=== PATIENT | female | born 1945 | race Caucasian/White ===

== ENCOUNTER 2019-10-03 03:04 | Emergency (ER) | payer MEDICARE, SELFPAY ==
--- NOTE | ~2019-10-03 | CT_ITS ---
EXAMINATION: CT abdomen pelvis w con EXAM DATE: 10/03/2019 05:27 INDICATION: Right lower quadrant pain. TECHNIQUE: Spiral CT of the abdomen and pelvis was performed following intravenous injection of 100 m L Omnipaque 350. Axial, coronal and sagittal images were reviewed. The dose-length product (DLP) fo r this examination was 575.82 mGy-cm. The exposure was tailored according to patient size (auto mA e xposure control), and iterative reconstruction (ASIR) was used as additional dose reduction technique . Comparison is made to prior examination from 11/04/2006. FINDINGS: Splenic granulomas. There is hepatic steatosis without suspicious focal lesion identified. Adrenal glands, pancreas are unremarkable. Gallbladder is unremarkable. No biliary obstruction. Th ere is a 2 mm stone in the right ureterovesicular junction with mild hydronephrosis and moderate burton nephric fat stranding. Delayed right-sided nephrogram compared to nonobstructed contralateral side. P robable fibroids. The bladder is collapsed at time of imaging limiting evaluation. There is no retr operitoneal or pelvic lymphadenopathy. There is mild to moderate scattered arteriosclerotic disease . The appendix is not positively visualized. There is no pericecal inflammatory change to suggest appe ndicitis. There is small sliding gastroesophageal hiatal hernia. There is expected amount of colon ic stool. No free intraperitoneal gas. There is cardiomegaly and pulmonary vascular congestion. N o pleural or pericardial effusions. There are bibasilar linear opacities, subsegmental atelectasis. There are no osteoblastic or osteolytic lesions identified. IMPRESSION: 1. Right UVJ 2 mm stone, mild hydronephrosis. 2. Probable fibroid uterus. 3. Small hiatal hernia. 4. Hepatic steatosis. 5. Cardiomegaly, basilar congestion. 6. Subsegmental atelectasis. Reviewed, dictated and finalized at location D. CTIONAL DRILL OPERATOR
[2019-10-03 03:16] VITALS: BP 210/94; PULSE 97; RESP 22; TEMP 36.4; O2SAT 100
[2019-10-03 03:39] LABS: Basophils Absolute Auto 0.1 K/mm3 (0.0-0.1); Basophils Percent Auto 0.5 % (0.2-1.2); Eosinophils Percent Auto 0.1 % (0-4.4); Hematocrit 44.4 % (37.0-47.0); Hemoglobin 14.4 g/dL (12.0-15.0); Immature Granulocyte Absolute 0.05 K/mm3 (0.00-0.031); Immature Granulocyte Percent A 0.4 % (0-0.5); Lymphocytes Absolute Auto 0.73 K/mm3 (0.9-3.2); Lymphocytes Percent Auto 5.8 % (18.3-44.2); Mean Corpuscular HGB Conc 32.4 g/dl (32-36); Mean Corpuscular Hemoglobin 28.8 pg (26-34); Mean Corpuscular Volume 88.8 fl (80-100); Mean Platelet Volume 10.7 fl (7.4-10.4); Monocytes Absolute Auto 0.5 K/mm3 (0.1-0.6); Monocytes Percent Auto 3.7 % (2.6-8.5); Neutrophils Absolute Auto 11.3 K/mm3 (1.3-6.7); Neutrophils Percent Auto 89.5 % (45.5-73.1); Platelet Count Result 240 k/mm3 (150-375); Red Cell Distribution Width 13.2 % (11.5-14.5); White Blood Count 12.6 K/mm3 (4.5-10.0)
[2019-10-03 04:03] LABS: Alanine Aminotransferase 27 U/L (4-35); Albumin Level 4.8 g/dL (3.5-5.1); Alkaline Phosphatase 93 U/L (38-126); Aspartate Amino Transferase 32 U/L (14-36); Bilirubin,Total 0.8 mg/dL (0.2-1.3); Blood Urea Nitrogen 15 mg/dL (7-17); Calcium 9.4 mg/dL (8.4-10.2); Carbon Dioxide 25 mmol/L (22-30); Chloride 98 mmol/L (98-107); Estimated CRCL calculation 44 ml/min; Estimated Glomerular Filt Rate > 60; Glucose 171 mg/dL (65-105); Lipase 55 U/L (23-300); Potassium 3.6 mmol/L (3.4-5.0); Sodium 138 mmol/L (137-145)
[2019-10-03] MEDS: ONDANSETRON INJ 4 MG/2 ML VIAL IV PUSH (04:21)
[2019-10-03] MEDS: MORPHINE SULFATE 4 MG/ML INJ IV PUSH (04:21)
[2019-10-03 04:23] VITALS: BP 178/71; PULSE 97; RESP 16; O2SAT 100
[2019-10-03 04:42] VITALS: BP 156/74; PULSE 86; RESP 18; O2SAT 100
[2019-10-03 04:53] LABS: Add Urine Microscopic? YES; Appearance Urine Cloudy (Clear); Bacteria Urine Trace /hpf; Bilirubin Urine Negative (Negative); Blood Urine Negative (Negative); Color Urine Yellow (Yellow); Glucose Urine UA 1+ mg/dL (Negative); Ketones Urine Trace mg/dL (Negative); Leukocyte Esterase Ur Negative LEU/UL (Negative); Mucus Urine Few /lpf; Nitrate Urine Negative (Negative); Protein Urine 2+ mg/dL (Negative); Squamous Epithelial Cell Urine Occasional /hpf (Few); Urobilinogen Urine Negative mg/dL (<2.0)
--- NOTE | 2019-10-03 05:49 | ED.ABDPAIN ---
HPI - Abdominal Pain General Chief Complaint: Abdominal Pain Stated Complaint: abd pain Time Seen by Provider: 10/03/19 03:49 History of Present Illness HPI narrative: Patient is a 74-year-old female who presents ER with sudden onset right-sided abdominal pain. Began earlier tonight. Associated with multiple bouts of emesis. No diarrhea. No known sick contacts. She is without urinary frequency/urgency/hematuria. Symptoms move into her right lower quadrant. Cannot find any aggravating or alleviating factors. Has not had similar sx previously. Related Data Home Medications Medication Instructions Recorded Confirmed anastrozole 1 mg tablet 1 mg PO DAILY 08/17/19 lisinopril 40 mg tablet 40 mg PO DAILY 08/17/19 metformin 500 mg tablet,extended 500 mg PO DAILY 08/17/19 release 24 hr metoprolol tartrate 50 mg tablet 100 mg PO Q12H tablet 08/17/19 Allergies Allergy/AdvReac Type Severity Reaction Status Date / Time codeine Allergy Unknown Nausea Verified 08/17/19 12:04 Review of Systems Review of Systems: All systems reviewed & are unremarkable except as noted in HPI and below Constitutional: Constitutional: Denies chills, Denies fever(s) and Denies weakness Cardiovascular: Cardiovascular: Denies chest pain Respiratory: Respiratory: Denies cough and Denies dyspnea Gastrointestinal: Gastrointestinal: Reports abdominal pain, Denies diarrhea, Reports nausea and Reports vomiting Genitourinary: Genitourinary: Denies hematuria, Denies nocturia, Denies dysuria and Denies flank pain PMFSH Past Medical History Medical History (Updated 10/03/19 @ 05:58 by Master Hidalgo MD) Essential (primary) hypertension Generalized anxiety disorder Lumbar radiculopathy Malignant essential hypertension Malignant neoplasm of unspecified site of left female breast Surgical History Surgical History (Updated 10/03/19 @ 05:53 by Master Hidalgo MD) History of appendectomy Social History Social History Smoking status: Never smoker Alcohol intake: current Gender identity (if verbalized by the patient): Female Exam Narrative: Exam Narrative: GENERAL: Uncomfortable-appearing, well-nourished, and in mild distress. HEAD: Normocephalic, atraumatic. ENT: Mucous membranes moist. CHEST: Clear to auscultation. No respiratory distress. HEART: Regular rate and rhythm. Normal peripheral pulses. ABDOMEN: Soft, mild TTP in the RLQ, nondistended. EXTREMITIES: Normal range of motion. No edema. SKIN: Warm, dry, no rash. NEURO: Alert and oriented x3. Course Vital Signs Vital signs: Vital Signs Temperature 97.6 F 10/03/19 03:16 Pulse Rate 97 10/03/19 03:16 Respiratory Rate 22 H 10/03/19 03:16 Blood Pressure 210/94 H 10/03/19 03:16 Pulse Oximetry 100 10/03/19 03:16 Temperature 97.6 F 10/03/19 03:16 Pulse Rate 86 10/03/19 04:42 Respiratory Rate 18 10/03/19 04:42 Blood Pressure 156/74 H 10/03/19 04:42 Pulse Oximetry 100 10/03/19 04:42 MDM - Abdominal Pain Lab Data Result diagrams: 10/03/19 03:31 10/03/19 03:31 Labs: Lab Results 10/03/19 10/03/19 10/03/19 Range/Units 03:31 03:31 04:18 WBC 12.6 H (4.5-10.0) K/mm3 RBC 5.00 (4.2-5.4) M/mm3 Hgb 14.4 (12.0-15.0) g/dL Hct 44.4 (37.0-47.0) % MCV 88.8 (80-100) fl MCH 28.8 (26-34) pg MCHC 32.4 (32-36) g/dl RDW 13.2 (11.5-14.5) % Plt Count 240 (150-375) k/mm3 MPV 10.7 H (7.4-10.4) fl Immature Gran % (Auto) 0.4 (0-0.5) % Neut % (Auto) 89.5 H (45.5-73.1) % Lymph % (Auto) 5.8 L (18.3-44.2) % [place] % (Auto) 3.7 (2.6-8.5) % Eos % (Auto) 0.1 (0-4.4) % Baso % (Auto) 0.5 (0.2-1.2) % Lymph # (Auto) 0.73 L (0.9-3.2) K/mm3 [place] # (Auto) 0.5 (0.1-0.6) K/mm3 Eos # (Auto) 0.0 (0-0.3) K/mm3 Baso # (Auto) 0.1 (0.0-0.1) K/mm3 Abs Immat Gran (auto) 0.05 H (0.00-
[2019-10-03] MEDS: KETOROLAC 30 MG/ML VIAL (*BKC) IV PUSH (05:54)
[2019-10-03 05:55] VITALS: BP 141/87; PULSE 88; RESP 16; TEMP 36.4; O2SAT 100
[2019-10-03 06:39] VITALS: BP 135/81; PULSE 76; RESP 16; TEMP 36.8; O2SAT 100
== END 2019-10-03 06:40 | disposition home or self-care (01) ==
PROVIDERS: Emergency Provider Emergency Medicine; PCP Family Medicine
DX: N13.2 Hydronephrosis with renal and ureteral calculous obstruction (principal); I10 Essential (primary) hypertension; Z85.3 Personal history of malignant neoplasm of breast
CPT/HCPCS: 36415; 74177; 80053; 81001; 83690; 85025; 96374; 96375; 99284; J1885; J2270; J2405; Q9967

== ENCOUNTER 2019-10-12 12:53 | Outpatient (CLI) | payer MEDICARE, SELFPAY ==
--- NOTE | ~2019-10-12 | MM_ITS ---
Patient consultation: I reviewed the 09/27/2019 left diagnostic mammogram images with the patient and discussed the prese nce of fat necrosis centrally within the surgical scar of the left breast, with some associated perip heral calcifications associated with the fat necrosis. I indicated that these were all benign postope rative findings and that biopsy was not indicated. IMPRESSIONS: BI-RADS Category 2: Benign Recommend aeration: Routine mammographic screening and any appropriate additional imaging as consider ed clinically appropriate for this patient with history of prior left breast cancer Reviewed, dictated and finalized at location B. TTER IMPRESSIONS: BI-RADS Category 2: Benign Recommend aeration: Routine mammographic screening and any appropriate addition al imaging as considered clinically appropriate for this patient with history o f prior left breast cancer
== END 2019-10-12 12:54 | disposition home or self-care (01) ==
PROVIDERS: PCP Family Medicine
DX: R92.8 Other abnormal and inconclusive findings on diagnostic imaging of breast (principal)
CPT/HCPCS: 99199

== ENCOUNTER → 2020-10-14 10:26 | Outpatient (CLI) | payer MEDICARE, SELFPAY ==
--- NOTE | ~2020-10-14 | DEXA_ITS ---
Bone Density Report Name: Annette Manriquez Age: 75 Sex: Female Ethnicity: White Date of : 1945 Indication: postmenopausal; screening for osteoporosis; cancer; Referring Provider: THOMAS, TARA Melendez Study: Bone densitometry was performed. Exam Date: October 14, 2020 Accession number: [id number] Bone Density: Region BMD T-score Z-score Classification AP Spine (L1-L4) 1.233 1.7 4.0 Normal Femoral Neck (Left) 0.778 -0.6 1.3 Normal Total Hip (Left) 0.993 0.4 2.1 Normal Femoral Neck (Right) 0.794 -0.5 1.5 Normal Total Hip (Right) 0.938 0.0 1.7 Normal Total Hip Mean 0.966 0.2 1.9 Normal World Health Organization criteria for BMD impression classify patients as: Normal (T-score at or above -1.0), Osteopenia (T-score between -1.0 and -2.5), or Osteoporosis (T-score at or below -2.5). 10-year Fracture Risk: FRAX not reported because: All T-scores for Spine Total, Hip Total, Femoral Neck at or above -1.0 Previous Exams: Region Exam Age BMD T-score BMD Change BMD Change Date g/cm2 vs Baseline vs Previous AP Spine(L1-L4) 10/14/2020 75 1.233 1.7 -0.136 -0.027* 08/16/2018 73 1.260 1.9 -0.109 0.023 07/25/2015 70 1.237 1.7 -0.132 0.005 02/07/2010 64 1.232 1.7 -0.137 0.002 09/24/2006 61 1.230 1.7 -0.140 -0.140 08/25/2002 57 1.369 2.9 Total Hip(Left) 10/14/2020 75 0.993 0.4 -0.012 0.009 08/16/2018 73 0.985 0.3 -0.020 -0.022 07/25/2015 70 1.007 0.5 0.002 0.016 02/07/2010 64 0.990 0.4 -0.015 -0.002 09/24/2006 61 0.992 0.4 -0.013 -0.013 08/25/2002 57 1.005 0.5 Total Hip(Right) 10/14/2020 75 0.938 0.0 -0.060 0.000 08/16/2018 73 0.938 0.0 -0.060 -0.020 07/25/2015 70 0.958 0.1 -0.040 -0.040* 02/07/2010 64 0.997 0.5 -0.001 0.070* 09/24/2006 61 0.928 -0.1 -0.070 -0.070 08/25/2002 57 0.998 0.5 *Denotes significance at 95% confidence level, LSC for AP Spine = 0.022 g/cm2, LSC for Total Hip = 0.027 g/cm2 Clinical Information Provided by Patient: Has used the following medications: Vitamin D Has the following medical conditions: Cancer Patient maximum height was 63.2 Menopause Age: 54 Drinks caffeinated beverages Onset of menses at age 15 Number
== END ==
PROVIDERS: PCP Family Medicine; Visit Provider Internal Medicine Medical Oncology
DX: Z78.0 Asymptomatic menopausal state (principal)
CPT/HCPCS: 77080

== ENCOUNTER → 2020-10-30 09:45 | Outpatient (CLI) | payer MEDICARE, SELFPAY ==
--- NOTE | ~2020-10-30 | MM_ITS ---
EXAMINATION: MM diagnostic rich BI w keo HISTORY: History of left breast cancer TECHNIQUE: Craniocaudal, mediolateral, and mediolateral oblique 3-D tomosynthesis images of the breas ts were performed and synthetic 2-D images were generated. CAD analysis was submitted and interpreted . COMPARISON: 09/27/2019,07/26/2019, 08/02/2017, 07/27/2016 BREAST PARENCHYMAL COMPOSITION: There are scattered areas of fibroglandular density. FINDINGS: There are stable lumpectomy changes in the subareolar aspect of the left breast. There is u nchanged asymmetry in the subareolar aspect of the right breast. No suspicious mass, calcification, o r architectural distortion are identified. Surgical clips in the left axilla are consistent with lymp h node dissection. IMPRESSION: 1. No mammographic evidence of malignancy. 2. Recommend routine screening mammography in one year. BI-RADS Category 2: Benign finding(s). Reviewed, dictated and finalized at location A. ICE CENTER MANAGER
== END ==
PROVIDERS: Visit Provider Internal Medicine Medical Oncology
DX: C50.612 Malignant neoplasm of axillary tail of left female breast (principal); Z17.0 Estrogen receptor positive status [ER+]
CPT/HCPCS: 77062; 77066; G0279

== ENCOUNTER 2020-11-04 15:11 | Outpatient (CLI) | payer MEDICARE, SELFPAY | END 2020-11-04 15:12 | disposition home or self-care (01) | LOC: ANHCOVIDVC 15:12 | DX: Z23 Encounter for immunization (principal) | CPT/HCPCS: 0001A; 91300 ==

== ENCOUNTER 2020-11-25 15:12 | Outpatient (CLI) | payer MEDICARE, SELFPAY | END 2020-11-25 15:13 | disposition home or self-care (01) | LOC: ANHCOVIDVC 15:12 | DX: Z23 Encounter for immunization (principal) | CPT/HCPCS: 0002A; 91300 ==

== ENCOUNTER 2021-09-25 01:05 | Day surgery (SDC) | payer MEDICARE, SELFPAY ==
[2021-09-18 15:58] VITALS: BMI 29.7
[2021-09-25 09:30] VITALS: BP 145/79; PULSE 98; RESP 20; TEMP 36.6; O2SAT 100; BMI 29.1
[2021-09-25 09:47] LABS: Glucose Point of Care 133 mg/dl (65-105)
[2021-09-25] MEDS: LACTATED RINGERS 1,000 ML 150 ML IV CONT (09:47)
--- NOTE | 2021-09-25 09:57 | WPDGICN ---
Assessment and Plan Assessment and plan (1) Personal history of colonic polyps: Code(s): Z86.010 - Personal history of colonic polyps Status: Acute Assessment and Plan: Patient presents for screening colonoscopy. She gives a distant history of colon polyps. plan is for surveillance colonoscopy at this time. 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 Patient has a prior history of colon polyps. Most recent colonoscopy was more than 10 years prior to this. Patient reports her current weight appetite bowel movements are normal. She denies abdominal pain. 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 She presents today for neoplasia screening colonoscopy. Review of Systems Review of Systems: All systems reviewed & are unremarkable except as noted in HPI and below PMFSH Past Medical History Medical History (Updated 08/15/21 @ 15:04 by Chely Marks PA-C) Essential (primary) hypertension Generalized anxiety disorder Hepatitis C antibody test negative (03/01/17) Hyperuricemia Kidney stone Lumbar radiculopathy Malignant essential hypertension Malignant neoplasm of unspecified site of left female breast Obesity (BMI 30.0-34.9) Overweight (BMI 25.0-29.9) Surgical History Surgical History History of appendectomy Family History Family History Father Family history of cardiovascular disease, Onset Age: 62 Mother Family history of congestive heart failure, Onset Age: 90 Father Family history of congenital heart disease Mother Family history of congestive heart failure Social History Social History Smoking status: Never smoker Alcohol intake: current Drinks per week: 7 Alcohol use details: WINE Substance use: never Substance use type: does not use Living arrangements: with family Gender identity (if verbalized by the patient): Female Spiritual care concerns: No Meds Home Medications and Allergies Home Medications Medication Instructions Recorded Confirmed Type anastrozole 1 mg tablet 1 mg PO DAILY 08/17/19 09/18/21 History ergocalciferol (vitamin D2) 1,250 50,000 unit PO WEEKLY #13 cap 03/14/21 09/18/21 Rx mcg (50,000 unit) capsule clopidogrel 75 mg tablet 75 mg PO DAILY #90 tablet 08/18/21 09/25/21 Rx hydrochlorothiazide 12.5 mg tablet 12.5 mg PO DAILY #90 tablet 08/18/21 09/18/21 Rx metformin 500 mg tablet,extended 500 mg PO DAILY #90 tablet 08/18/21 09/18/21 Rx release 24 hr aspirin [Adult Low Dose Aspirin] 81 mg PO DAILY 09/18/21 09/18/21 History lisinopril 40 mg PO DAILY 09/18/21 09/18/21 History metoprolol tartrate 50 mg PO BID 09/18/21 09/18/21 History Allergies Allergy/AdvReac Type Severity Reaction Status Date / Time codeine AdvReac Mild Nausea Verified 09/25/21 09:26 meperidine AdvReac Mild NAUSEA Verified 09/25/21 09:26 Vital Signs Vital Signs - 24 hr 09/25/21 09:30 Temperature 97.8 F Pulse Rate 98 Respiratory Rate 20 Blood Pressure 145/79 H Pulse Oximetry 100 Exam Narrative: Physical exam reveals patient to be alert. Vital signs stable. HEENT exam is unremarkable. Patient is anicteric. Lungs are clear to auscultation and percussion. Heart is without murmur or extra sounds. Abdominal exam bowel sounds are present soft nontender with no organomegaly. Digital external rectal exam is normal.
--- NOTE | 2021-09-25 10:26 | WPDANESEPPF ---
Anes - Initial Pre Proc Eval Procedure: Operation Date: 09/25/21 10:30 Proposed Procedures p Screening Colonoscopy - Bronson Vidal MD Date/Time: 09/25/21 10:26 Surgeon: Bronson Vidal MD Pre Op Diagnosis: hx of colon polyps Patient Data Age: 76 Gender: F Height: 1.63 m Weight: 77 kg Last Vital Signs Temp 97.8 F 09/25/21 09:30 Pulse 98 09/25/21 09:30 Resp 20 09/25/21 09:30 BP 145/79 H 09/25/21 09:30 Pulse Ox 100 09/25/21 09:30 Allergies Allergy/AdvReac Type Severity Reaction Status Date / Time codeine AdvReac Mild Nausea Verified 09/25/21 09:26 meperidine AdvReac Mild NAUSEA Verified 09/25/21 09:26 Home Medications Medication Instructions Recorded Confirmed Type anastrozole 1 mg tablet 1 mg PO DAILY 08/17/19 09/18/21 History ergocalciferol (vitamin D2) 1,250 50,000 unit PO WEEKLY #13 cap 03/14/21 09/18/21 Rx mcg (50,000 unit) capsule clopidogrel 75 mg tablet 75 mg PO DAILY #90 tablet 08/18/21 09/25/21 Rx hydrochlorothiazide 12.5 mg tablet 12.5 mg PO DAILY #90 tablet 08/18/21 09/18/21 Rx metformin 500 mg tablet,extended 500 mg PO DAILY #90 tablet 08/18/21 09/18/21 Rx release 24 hr aspirin [Adult Low Dose Aspirin] 81 mg PO DAILY 09/18/21 09/18/21 History lisinopril 40 mg PO DAILY 09/18/21 09/18/21 History metoprolol tartrate 50 mg PO BID 09/18/21 09/18/21 History Laboratory Tests 09/25/21 09:43 POC Capillary Glucose 133 mg/dl H mg/dl (65-105) Patient hx anesthesia problems: none Family hx anesthesia problems: none Results Review: All pre-operative results and documents have been reviewed as part of the pre-operative evaluation. [facility] Past Medical History Medical History (Updated 08/15/21 @ 15:04 by Chely Marks PA-C) Essential (primary) hypertension Generalized anxiety disorder Hepatitis C antibody test negative (06/26/17) Hyperuricemia Kidney stone Lumbar radiculopathy Malignant essential hypertension Malignant neoplasm of unspecified site of left female breast Obesity (BMI 30.0-34.9) Overweight (BMI 25.0-29.9) Surgical History Surgical History History of appendectomy Family History Family History Father Family history of cardiovascular disease, Onset Age: 62 Mother Family history of congestive heart failure, Onset Age: 90 Father Family history of congenital heart disease Mother Family history of congestive heart failure Social History Social History Smoking status: Never smoker Alcohol intake: current Drinks per week: 7 Alcohol use details: WINE Substance use: never Substance use type: does not use Living arrangements: with family Gender identity (if verbalized by the patient): Female Spiritual care concerns: No Anes - Eval Final PreProcedure Day of Procedure 09/25/21 10:26 Patient weight: overweight Heart: regular rate and rhythm Lungs: clear to auscultation Airway: Mallampati scale class II Neurological: alert and oriented Last oral intake: >/= 8 hours ASA classification: III Emergent: no Anesthetic plan: proceed Anesthesia type and monitoring: general GIVS and standard monitoring Results Review: All pre-operative results and documents have been reviewed as part of the pre-operative evaluation. Informed Consent: The patient's anesthetic plan and its attendant risks and benefits were discussed with the patient/family/POA. Questions were solicited and answers provided to the satisfaction of the patient/family/POA.
[2021-09-25 11:08] VITALS: BP 138/75; PULSE 88; RESP 22; O2SAT 99
[2021-09-25 11:18] VITALS: BP 134/70; PULSE 84; RESP 18; O2SAT 100
[2021-09-25 11:27] VITALS: BP 143/64; PULSE 76; RESP 15; O2SAT 96
== END 2021-09-25 11:45 | disposition home or self-care (01) ==
PROVIDERS: PCP Family Medicine; Visit Provider Internal Medicine Gastroenterology
PROC: 0DJD8ZZ Inspection of Lower Intestinal Tract, Via Natural or Artificial Opening Endoscopic (ICD-10-PCS; CPT 45378; principal; 2021-09-25 10:30)
DX: Z12.11 Encounter for screening for malignant neoplasm of colon (principal); Z86.010 Personal history of colon polyps; I69.951 Hemiplegia and hemiparesis following unspecified cerebrovascular disease affecting right dominant side; I10 Essential (primary) hypertension; F41.1 Generalized anxiety disorder; Z85.72 Personal history of non-Hodgkin lymphomas; Z79.811 Long term (current) use of aromatase inhibitors; Z85.3 Personal history of malignant neoplasm of breast; Z79.02 Long term (current) use of antithrombotics/antiplatelets; Z79.82 Long term (current) use of aspirin; Z79.84 Long term (current) use of oral hypoglycemic drugs
CPT/HCPCS: G0105; 82948; J2704; J7120

== ENCOUNTER → 2021-11-07 14:09 | Outpatient (CLI) | payer MEDICARE, SELFPAY ==
--- NOTE | ~2021-11-07 | MM_ITS ---
EXAMINATION: MM diagnostic rich BI w keo HISTORY: History of left breast cancer TECHNIQUE: Craniocaudal, mediolateral, and mediolateral oblique 3-D tomosynthesis images of the breas ts were performed and synthetic 2-D images were generated. CAD analysis was submitted and interpreted . COMPARISON: 10/30/2020,09/27/2019, 08/04/2018 BREAST PARENCHYMAL COMPOSITION: There are scattered areas of fibroglandular density. FINDINGS: Stable lumpectomy changes are again noted in the subareolar aspect of the left breast. Stab le asymmetry is seen in the subareolar aspect of the right breast. There is no suspicious mass, calci fication, or architectural distortion. Changes of left axillary lymph node dissection are again noted . IMPRESSION: 1. No mammographic evidence of malignancy. 2. Recommend routine screening mammography in one year. BI-RADS Category 2: Benign finding(s). Reviewed, dictated and finalized at location A. ONATION EQUIPMENT OPERATOR
== END ==
PROVIDERS: PCP Internal Medicine Medical Oncology; Visit Provider Internal Medicine Medical Oncology
DX: C50.612 Malignant neoplasm of axillary tail of left female breast (principal); Z17.0 Estrogen receptor positive status [ER+]
CPT/HCPCS: 77062; 77066; G0279

== ENCOUNTER 2022-10-17 08:11 | Emergency (ER) | payer MEDICARE, SELFPAY ==
--- NOTE | 2022-10-17 08:16 | ED.URI ---
HPI - URI/Sore Throat General Chief Complaint: Upper Respiratory Infection Stated Complaint: COLD SYMPTOMS Time Seen by Provider: 10/17/22 08:16 Source: patient and RN notes reviewed History of Present Illness HPI Narrative: Patient is a 77-year-old female who presents to urgent care with complaints of a cold. Patient states that for approximately 1 week she has had congestion, postnasal drainage, cough and bilateral ear pain. Patient states the ear pain started after she was flying yesterday. Patient denies any fever, nausea, vomiting. Denies any ill exposures. No other acute complaints. Patient been taking DayQuil for her symptoms. No acute distress noted. Patient aware of the plan of care. Some parts of this dictation were generated by voice recognition software and may contain typographical and/or grammatical inaccuracies. Related Data Home Medications Medication Instructions Recorded Confirmed anastrozole 1 mg tablet 1 mg PO DAILY 08/17/19 10/17/22 aspirin 81 mg tablet 81 mg PO DAILY 09/18/21 10/17/22 Allergies Allergy/AdvReac Type Severity Reaction Status Date / Time codeine AdvReac Mild Nausea Verified 10/17/22 08:21 meperidine AdvReac Mild NAUSEA Verified 10/17/22 08:21 Review of Systems Review of Systems: CONSTITUTIONAL: Denies fever, chills, or sweats. EYES: Denies visual changes, redness, or discharge. ENT: Reports postnasal drainage, congestion, bilateral otalgia CARDIOVASCULAR: Denies chest pain, palpitations, or edema. RESPIRATORY: Reports of cough without dyspnea GASTROINTESTINAL: Denies abdominal pain, nausea, vomiting, or diarrhea. GENITOURINARY: Denies dysuria or hematuria. SKIN: Denies rash or itching. MUSCULOSKELETAL: Denies back pain, joint pain, or myalgia. NEUROLOGIC: Denies headache, numbness, or weakness. All other systems reviewed are negative, except as documented in HPI. [facility] Past Medical History Medical History Essential (primary) hypertension Generalized anxiety disorder Hepatitis C antibody test negative (03/01/17) Hyperuricemia Kidney stone Lumbar radiculopathy Malignant essential hypertension Malignant neoplasm of unspecified site of left female breast Obesity (BMI 30.0-34.9) Overweight (BMI 25.0-29.9) Surgical History Surgical History History of appendectomy Family History Family History Father Family history of cardiovascular disease, Onset Age: 62 Mother Family history of congestive heart failure, Onset Age: 90 Father Family history of congenital heart disease Mother Family history of congestive heart failure Social History Social History (Updated 08/21/22 @ 14:33 by Josefa Bryson MA) Smoking status: Never smoker Alcohol intake: current Drinks per week: 7 Alcohol use details: WINE Substance use: never Substance use type: does not use Lack of Transportation: No Lack of Food: Never True Current Housing: I Have Housing Concerned About Future Housing: No Difficulty Paying Gas/Electric Bills: No Difficulty Paying for Meds: No Education: Master's Degree or Higher Difficulty w/ Childcare or Family Care: No Living arrangements: with family Gender identity (if verbalized by the patient): Female Spiritual care concerns: No Comments At the time of my signature, I reviewed and agree with the nursing past medical, surgical, social, and family history. There is no relevant family history pertinent to the patient complaint. Exam Narrative: GENERAL: This is a well-nourished, well-developed patient, in no apparent distress. HEAD: normocephalic, atraumatic. EYES: PERRL. Sclera clear/white. Vision is grossly intact. EARS: External ears normal, auditory canals clear and without drainage, moderate bilateral eustachian tube dys
[2022-10-17 08:20] VITALS: BP 167/83; PULSE 77; RESP 16; TEMP 36.8; O2SAT 99
[2022-10-17 08:21] VITALS: BP 167/83; PULSE 77; RESP 16; TEMP 36.8; O2SAT 99
== END 2022-10-17 08:35 | disposition home or self-care (01) ==
PROVIDERS: Emergency Provider Nurse Practitioner Family; PCP Family Medicine
DX: H66.91 Otitis media, unspecified, right ear (principal); J32.9 Chronic sinusitis, unspecified; I10 Essential (primary) hypertension; E66.9 Obesity, unspecified; Z68.29 Body mass index [BMI] 29.0-29.9, adult; Z85.3 Personal history of malignant neoplasm of breast
CPT/HCPCS: 99213; G0463

== ENCOUNTER → 2022-11-09 09:04 | Outpatient (CLI) | payer MEDICARE, SELFPAY ==
--- NOTE | ~2022-11-09 | MM_ITS ---
EXAMINATION: MM diagnostic rich BI w keo HISTORY: History of left breast cancer TECHNIQUE: Craniocaudal, mediolateral, and mediolateral oblique 3-D tomosynthesis images of the breas ts were performed and synthetic 2-D images were generated. CAD analysis was submitted and interpreted . COMPARISON: 11/07/2021, 10/30/2020, 09/11/2019 BREAST PARENCHYMAL COMPOSITION: There are scattered areas of fibroglandular density. FINDINGS: Again noted are stable lumpectomy changes in the subareolar aspect of the left breast. Ther e is chronic, stable asymmetry in the subareolar right breast on the craniocaudal view. No suspicious mass, calcification, or architectural distortion are identified. There are changes of left axillary lymph node dissection. IMPRESSION: 1. No mammographic evidence of malignancy. 2. Recommend routine screening mammography in one year. BI-RADS Category 2: Benign finding(s). Reviewed, dictated and finalized at location A. CREW FOREMAN
== END ==
PROVIDERS: PCP Family Medicine; Visit Provider Internal Medicine Medical Oncology
DX: C50.612 Malignant neoplasm of axillary tail of left female breast (principal); Z17.0 Estrogen receptor positive status [ER+]
CPT/HCPCS: 77062; 77066; G0279

== ENCOUNTER 2023-12-08 10:41 | Outpatient (CLI) | payer MEDICARE, SELFPAY ==
--- NOTE | ~2023-12-08 | MM_ITS ---
EXAMINATION: MM diagnostic rich BI w keo HISTORY: History of left breast cancer TECHNIQUE: Additional 3-D tomosynthesis images of the breasts were performed and synthetic 2-D images were generated. CAD analysis was submitted and interpreted. COMPARISON: Comparison to multiple prior studies sequentially, with oldest reviewed study dated 07/08. BREAST PARENCHYMAL COMPOSITION: Not dense: There are scattered areas of fibroglandular density. FINDINGS: The breasts are stable. Stable architectural distortion/surgical change subareolar location of the left breast. There are benign bilateral breast calcifications. IMPRESSION: 1. No evidence for malignancy in either breast. 2. Routine yearly screening mammogram and regular clinical breast examination are recommended. BI-RADS Category 2: Benign finding(s). Reviewed, dictated and finalized at location A. IMPRESSION: 1. No evidence for malignancy in either breast. 2. Routine yearly screening mammogram and regular clinical breast examination a re recommended. BI-RADS Category 2: Benign finding(s).
--- NOTE | ~2023-12-08 | DEXA_ITS ---
Bone Density Report Name: Annette Manriquez Age: 78 Sex: Female Ethnicity: White Date of : 1945 Indication: postmenopausal; screening for osteoporosis; cancer; Referring Provider: THOMAS, TARA Melendez Study: Bone densitometry was performed. Exam Date: December 08, 2023 Accession number: [id number] Bone Density: Region BMD T-score Z-score Classification AP Spine (L1-L4) 1.220 1.6 4.1 Normal Femoral Neck (Left) 0.768 -0.7 1.4 Normal Total Hip (Left) 0.965 0.2 2.1 Normal Femoral Neck (Right) 0.761 -0.8 1.4 Normal Total Hip (Right) 0.905 -0.3 1.6 Normal Total Hip Mean 0.935 -0.1 1.9 Normal World Health Organization criteria for BMD impression classify patients as: Normal (T-score at or above -1.0), Osteopenia (T-score between -1.0 and -2.5), or Osteoporosis (T-score at or below -2.5). 10-year Fracture Risk: FRAX not reported because: All T-scores for Spine Total, Hip Total, Femoral Neck at or above -1.0 Previous Exams: Region Exam Age BMD T-score BMD Change BMD Change Date g/cm2 vs Baseline vs Previous AP Spine(L1-L4) 12/08/2023 78 1.220 1.6 -0.149 -0.013 10/14/2020 75 1.233 1.7 -0.136 -0.027* 08/16/2018 73 1.260 1.9 -0.109 0.023 07/25/2015 70 1.237 1.7 -0.132 0.005 02/07/2010 64 1.232 1.7 -0.137 0.002 09/24/2006 61 1.230 1.7 -0.140 -0.140 08/25/2002 57 1.369 2.9 Total Hip(Left) 12/08/2023 78 0.965 0.2 -0.040 -0.028* 10/14/2020 75 0.993 0.4 -0.012 0.009 08/16/2018 73 0.985 0.3 -0.020 -0.022 07/25/2015 70 1.007 0.5 0.002 0.016 02/07/2010 64 0.990 0.4 -0.015 -0.002 09/24/2006 61 0.992 0.4 -0.013 -0.013 08/25/2002 57 1.005 0.5 Total Hip(Right) 12/08/2023 78 0.905 -0.3 -0.093 -0.033* 10/14/2020 75 0.938 0.0 -0.060 0.000 08/16/2018 73 0.938 0.0 -0.060 -0.020 07/25/2015 70 0.958 0.1 -0.040 -0.040* 02/07/2010 64 0.997 0.5 -0.001 0.070* 09/24/2006 61 0.928 -0.1 -0.070 -0.070 08/25/2002 57 0.998 0.5 *Denotes significance at 95% confidence level, LSC for AP Spine = 0.022 g/cm2, LSC for Total Hip = 0.027 g/cm2 Clinical Information Provided by Patient: Has used the foll
== END 2023-12-08 10:42 ==
PROVIDERS: PCP Internal Medicine Medical Oncology; Visit Provider Internal Medicine Medical Oncology
DX: C50.612 Malignant neoplasm of axillary tail of left female breast (principal); Z17.0 Estrogen receptor positive status [ER+]; Z79.811 Long term (current) use of aromatase inhibitors
CPT/HCPCS: 77062; 77066; 77080; G0279

== ENCOUNTER 2024-12-08 13:28 | Outpatient (CLI) | payer MEDICARE, SELFPAY ==
--- NOTE | ~2024-12-08 | MM_ITS ---
EXAMINATION: MM screening [facility] [place] BI w keo HISTORY: Screening TECHNIQUE: Craniocaudal and mediolateral oblique 3-D tomosynthesis images were obtained and synthetic 2-D images were generated. CAD analysis was submitted and interpreted. COMPARISON: Comparison to multiple prior studies sequentially, with oldest reviewed study dated 09/27. BREAST PARENCHYMAL COMPOSITION: Not dense: There are scattered areas of fibroglandular density. FINDINGS: There is a developing asymmetry in the subareolar location the right breast. There are deve loping pleomorphic calcifications in the upper outer quadrant of the left breast. There are postsurgi rodrigo changes in the subareolar location of the left breast. IMPRESSION: 1. Developing right breast asymmetry. Developing clustered pleomorphic calcifications upper outer ken drant of the left breast. 2. Additional mammographic views and possible breast ultrasound are recommended. BI-RADS Category 0: Incomplete: Needs additional imaging evaluation. Reviewed, dictated and finalized at location A. IMPRESSION: 1. Developing right breast asymmetry. Developing clustered pleomorphic calcific ations upper outer quadrant of the left breast. 2. Additional mammographic views and possible breast ultrasound are recommended . BI-RADS Category 0: Incomplete: Needs additional imaging evaluation.
== END 2024-12-08 13:29 | disposition home or self-care (01) ==
PROVIDERS: Visit Provider Family Medicine
DX: Z12.31 Encounter for screening mammogram for malignant neoplasm of breast (principal); R92.8 Other abnormal and inconclusive findings on diagnostic imaging of breast
CPT/HCPCS: 77063; 77067

== ENCOUNTER 2025-01-08 08:46 | Outpatient (CLI) | payer MEDICARE, SELFPAY ==
--- NOTE | ~2025-01-08 | MMUS_ITS ---
EXAMINATION: MM diagnostic [facility] w keo, US breast RT limited HISTORY: Follow-up right breast asymmetry and left breast calcifications. TECHNIQUE: Additional 3-D tomosynthesis images of the breasts were performed and synthetic 2-D images were generated. CAD analysis was submitted and interpreted. High resolution Limited right breast ult rasound was performed. COMPARISON: Comparison to multiple prior studies sequentially, with oldest reviewed study dated 10/30. BREAST PARENCHYMAL COMPOSITION: Not dense: There are scattered areas of fibroglandular density. FINDINGS: MAMMOGRAPHIC FINDINGS: There is developing asymmetry in the periareolar location of the right breast centered in the upper o uter quadrant anteriorly. There are coarse and punctate monomorphic calcifications centered in the up per outer quadrant of the left breast, anterior third which are most likely benign. ULTRASOUND: Limited right breast ultrasound: At 9:00 near the nipple there is a indistinct irregular shaped hypoe choic right breast mass without internal vascularity or posterior features. IMPRESSION: 1. Indistinct hypoechoic right breast mass corresponds to area of developing asymmetry by mammography . Left breast calcifications are most likely benign. Six-month follow-up diagnostic left mammogram re commended. 2. Ultrasound-guided right breast biopsy recommended. BI-RADS category 4, suspicious findings. Reviewed, dictated and finalized at location A. IMPRESSION: 1. Indistinct hypoechoic right breast mass corresponds to area of developing as ymmetry by mammography. Left breast calcifications are most likely benign. Six- month follow-up diagnostic left mammogram recommended. 2. Ultrasound-guided right breast biopsy recommended. BI-RADS category 4, suspicious findings.
== END 2025-01-08 08:47 | disposition home or self-care (01) ==
PROVIDERS: Visit Provider Internal Medicine Medical Oncology
DX: C50.912 Malignant neoplasm of unspecified site of left female breast (principal); R93.9 Diagnostic imaging inconclusive due to excess body fat of patient; R92.8 Other abnormal and inconclusive findings on diagnostic imaging of breast
CPT/HCPCS: 76642; 77062; 77066; G0279